=== PATIENT | male | born 1980 | race Caucasian/White ===

== ENCOUNTER 2018-12-19 14:17 | Emergency (ER) | payer MEDICAID ==
[~2018-12-19] VITALS: Ht 182.9 cm; Wt 81.6 kg
[2018-12-19 14:41] VITALS: BP 138/90
--- NOTE | 2018-12-19 16:41 | NUR ---
placed to ER 18
[2018-12-19] MEDS ORDERED: IBUPROFEN 600 MG TABLET PO ONE ×2 (18:00→18:42)
[2018-12-19] MEDS: LIDOCAINE 1%-EPI 1:100,000 20 ML VIAL TP ONE ×2 (18:12→18:43)
[2018-12-19] MEDS ORDERED: LIDOCAINE 1%-EPI 1:100,000 20 ML VIAL ONE (18:12)
== END 2018-12-19 19:13 | disposition home or self-care (01) ==
LOC: ER 14:21
DX: L02.31 Cutaneous abscess of buttock (principal)
CPT/HCPCS: 10060; 99283; J3490

== ENCOUNTER 2019-10-17 07:28 | Emergency (ER) | payer MEDICAID ==
[~2019-10-17] VITALS: Ht 182.9 cm; Wt 79.4 kg
[2019-10-17 07:36] VITALS: BP 108/50
--- NOTE | 2019-10-17 07:49 | NUR ---
URINE SPECIMEN COLLECTED AND SENT TO LAB.
[2019-10-17] MEDS ORDERED: LIDOCAINE /MPF 1% VIAL 5 ML VIAL ONE (07:51)
[2019-10-17] MEDS ORDERED: AZITHROMYCIN 250 MG TABLET ONE (07:51)
[2019-10-17] MEDS ORDERED: CEFTRIAXONE 500 MG VIAL ONE (07:51)
[2019-10-17] MEDS ORDERED: AZITHROMYCIN 250 MG TABLET PO ONE (08:00)
[2019-10-17] MEDS ORDERED: CEFTRIAXONE 1 G VIAL IM ONE (08:00)
--- NOTE | 2019-10-17 08:00 | NUR ---
ER PHLEB AT BEDSIDE FOR BLOOD DRAW.
--- NOTE | 2019-10-17 08:03 | NUR ---
Patient discharged to home in stable condition. Written and verbal after care instructions given. Patient verbalizes understanding of instruction.
[2019-10-17 08:04] LABS: APPEARANCE,URINE Clear (CLEAR); BILIRUBIN,URINE Negative (NEGATIVE); BLOOD, URINE Small Ery/uL (NEGATIVE); COLOR,URINE Yellow (YELLOW); KETONES,URINE Negative (NEGATIVE); LEUKOCYTE ESTERASE ,URINE Negative (NEGATIVE); NITRITE, URINE Negative (NEGATIVE); PH,URINE 5.5 (5.0-8.0); PROTEIN,URINE Negative (NEGATIVE); UGLUCOSE Negative (NEGATIVE); UROBILINOGEN,URINE 0.2 EU/dL (0.2)
[2019-10-17 08:16] LABS: BACTERIA,URINE Few /HPF (None Seen); RBC,URINE 0-2 /HPF (0-2); SQUAMOUS EPITHELIAL CELL,UR Few /HPF (None Seen); WBC,URINE 0-2 /HPF (0-3)
== END 2019-10-17 08:04 | disposition home or self-care (01) ==
LOC: ER 07:31
DX: A64 Unspecified sexually transmitted disease (principal); R36.9 Urethral discharge, unspecified
CPT/HCPCS: 81001; 87086; 87491; 87591; 96372; 99283; J0696; J3490; 81000-TC

== ENCOUNTER 2020-02-29 06:55 | Emergency (ER) | payer MEDICAID ==
[~2020-02-29] VITALS: Ht 182.9 cm; Wt 79.4 kg
[2020-02-29 06:59] VITALS: BP 135/91
== END 2020-02-29 07:17 | disposition home or self-care (01) ==
LOC: ER 06:55
DX: L01.09 Other impetigo (principal)

== ENCOUNTER 2020-03-28 17:39 | Emergency (ER) | payer MEDICAID ==
[~2020-03-28] VITALS: Ht 182.9 cm; Wt 74.8 kg
[2020-03-28 17:46] VITALS: BP 139/89
--- NOTE | 2020-03-28 18:21 | NUR ---
Patient discharged to home in stable condition. Written and verbal after care instructions given. Patient verbalizes understanding of instruction.
[2020-03-28] MEDS ORDERED: TDAP [DIPH/PERTUSSIS/TET] 0.5 ML VIAL IM ONE (18:30)
== END 2020-03-28 18:22 | disposition home or self-care (01) ==
LOC: ER 17:40
DX: L01.00 Impetigo, unspecified (principal); Z86.14 Personal history of Methicillin resistant Staphylococcus aureus infection; Z60.2 Problems related to living alone

== ENCOUNTER 2020-04-20 09:46 | Emergency (ER) | payer MEDICAID ==
[~2020-04-20] VITALS: Ht 182.9 cm; Wt 72.6 kg
[2020-04-20 10:01] VITALS: BP 143/51
[2020-04-20] MEDS ORDERED: CEPH500C2 PO (11:45)
[2020-04-20] MEDS ORDERED: SULF1TAB48 PO (11:45)
== END 2020-04-20 12:22 | disposition home or self-care (01) ==
LOC: ER 09:53
DX: L03.811 Cellulitis of head [any part, except face] (principal); L01.00 Impetigo, unspecified; Z86.14 Personal history of Methicillin resistant Staphylococcus aureus infection; F15.10 Other stimulant abuse, uncomplicated; Z60.2 Problems related to living alone